=== PATIENT | female | born 1945 | race Caucasian/White ===

== ENCOUNTER 2018-08-03 11:08 | Inpatient (IN) | payer MEDICARE, MEDICAID ==
[2018-08-03 11:38] LABS: ADD MAN DIFF? NO
[2018-08-03] MEDS: SOD CHLORIDE 0.9% 500 ML IV (11:45)
[2018-08-03] MEDS: METHYLPREDNISOLONE 125 MG INJ IV (11:45)
[2018-08-03 11:51] LABS: BASOPHILS % 0.3 % (0.0-2.0); EOSINOPHILS % 0.4 % (0.0-7.0); HEMATOCRIT 43.4 % (37.0-47.0); HEMOGLOBIN 13.4 g/dl (12.0-16.0); LYMPHOCYTES # 3.5 10^3/ul (0.8-2.9); LYMPHOCYTES % 38.3 % (15.0-51.0); MEAN CORPUSCULAR HEMOGLOBIN 29.3 pg (29.0-33.0); MEAN CORPUSCULAR HGB CONC 30.9 g/dl (32.0-37.0); MEAN PLATELET VOLUME 10.9 fl (7.4-10.4); MONOCYTES % 10.3 % (0.0-11.0); NEUTROPHIL # 4.6 10^3/ul (1.6-7.5); NEUTROPHILS % 50.2 % (39.0-77.0); PLATELET COUNT 126 10^3/UL (140-415); RED BLOOD COUNT 4.57 10^6/ul (4.20-5.40)
[2018-08-03 11:51] LABS: WHITE BLOOD COUNT 9.2 10^3/ul (4.8-10.8)
[2018-08-03 12:07] LABS: ALANINE AMINOTRANSFERASE 72 IU/L (13-69); ALBUMIN 3.6 g/dl (3.3-4.9); ALBUMIN/GLOBULIN RATIO 0.92; ALKALINE PHOSPHATASE 87 IU/L (42-121); ANION GAP 11 (5-13); ASPARTATE AMINO TRANSFERASE 75 IU/L (15-46); BILIRUBIN,INDIRECT 0.1 mg/dl (0-1.1); BILIRUBIN,TOTAL 0.1 mg/dl (0.2-1.3); BLOOD UREA NITROGEN 30 mg/dl (7-20); CALCIUM 8.8 mg/dl (8.4-10.2); CARBON DIOXIDE 26 mmol/L (21-31); CHLORIDE 103 mmol/L (97-110); CREATININE 1.42 mg/dl (0.44-1.00); GLUCOSE 135 mg/dl (70-220); LIPASE 70 U/L (23-300); SODIUM 140 mmol/L (135-144); TOTAL PROTEIN 7.5 g/dl (6.1-8.1)
[2018-08-03] MEDS: ALBUTEROL 0.5% (NEB) 2.5 MG/0.5 ML AMP INH (12:09)
[2018-08-03 12:18] LABS: B-TYPE NATRIURETIC PEPTIDE 1100 PG/ML (0-125)
[2018-08-03 12:25] LABS: ADD UMIC NO; UR ASCORBIC ACID NEGATIVE (NEGATIVE); UR BILIRUBIN (Dip) NEGATIVE (NEGATIVE); UR BLOOD (Dip) NEGATIVE (NEGATIVE); UR CLARITY SLIGHTLY CLOUDY (CLEAR); UR COLOR YELLOW (YELLOW); UR GLUCOSE (Dip) NEGATIVE (NEGATIVE); UR KETONES (Dip) TRACE mg/dL (NEGATIVE); UR LEUKOCYTE ESTERASE (Dip) NEGATIVE Leu/ul (NEGATIVE); UR MUCUS FEW /HPF (NONE SEEN); UR NITRITE (Dip) NEGATIVE (NEGATIVE); UR RBC 1 /HPF (0-5); UR SPECIFIC GRAVITY (Dip) 1.016 (1.003-1.030); UR TOTAL PROTEIN (Dip) NEGATIVE (NEGATIVE); UR UROBILINOGEN (Dip) NEGATIVE (NEGATIVE); UR WBC 2 /HPF (0-5)
[2018-08-03 12:31] LABS: AADO2 Arterial 37.1 mmHg (7.0-24.0); Allen Test ACCEPTAB; Arterial Base Excess -0.3 mmol/L (-3.0-3); Arterial Blood Gas Oxygen Sat 87.4 mmHG (95.0-100.0); Arterial Fraction of Oxyhgb 86.3 % (93.0-99.0); Arterial HCO3 25.8 mmol/L (22.0-26.0); Arterial MetHb 0.3 % (0.0-1.5); Arterial pCO2 47.9 mmhg (35-45); MODE ROOM AIR; Site Right Radial
[2018-08-03] MEDS: OSELTAMIVIR 75 MG CAP PO ×2 (12:57→21:25)
[2018-08-03] MEDS: DEXTROSE 50% 50 ML SYRINGE IV (13:25)
[2018-08-03] MEDS: INSULIN REGULAR, HUMAN 100 UNIT/1 ML 3ML VIAL IVP (13:26)
[2018-08-03] MEDS ORDERED: DEXTROSE 50% 50 ML SYRINGE IV (13:30)
[2018-08-03] MEDS: OLANZAPINE 10 MG VIAL IM (14:59)
[2018-08-03] MEDS ORDERED: ALBUTEROL/IPRATROPIUM (NEB) 3 ML AMP HHN (18:00)
[2018-08-03] MEDS: CLONIDINE 0.2 MG/24 HR PATCH TRANSDERM (18:40)
[2018-08-03] MEDS ORDERED: PENDING SANTYL ORDER FOR WOUND CARE XX (19:00)
[2018-08-03] MEDS: ALBUTEROL/IPRATROPIUM (NEB) 3 ML AMP HHN (20:20)
[2018-08-03] MEDS: DIVALPROEX (EC) 500 MG TAB PO (21:25)
[2018-08-03] MEDS: QUETIAPINE 100 MG TAB PO (21:25)
[2018-08-03] MEDS: LORAZEPAM 1 MG TAB PO (21:25)
[2018-08-03] MEDS: SENNA TAB PO (21:25)
[2018-08-04] MEDS: ALBUTEROL/IPRATROPIUM (NEB) 3 ML AMP HHN ×3 (08:00→20:00)
[2018-08-04] MEDS: SENNA TAB PO ×2 (09:00→21:04)
[2018-08-04] MEDS: DIVALPROEX (EC) 500 MG TAB PO ×3 (09:00→21:04)
[2018-08-04] MEDS: PANTOPRAZOLE (EC) 40 MG TAB PO (09:00)
[2018-08-04] MEDS: ESCITALOPRAM 10 MG TAB PO (09:00)
[2018-08-04] MEDS: QUETIAPINE 100 MG TAB PO ×2 (09:00→21:04)
[2018-08-04] MEDS: AMLODIPINE 10 MG TAB PO (09:00)
[2018-08-04] MEDS: BENAZEPRIL 20 MG TAB PO (09:00)
[2018-08-04] MEDS: DOCUSATE SODIUM 100 MG CAP PO (09:00)
[2018-08-04] MEDS: OSELTAMIVIR 75 MG CAP PO (09:00)
[2018-08-04] MEDS: ASPIRIN (EC) 81 MG TAB PO (09:00)
[2018-08-04] MEDS: LORAZEPAM 1 MG TAB PO (11:38)
[2018-08-04 11:53] LABS: ADD MAN DIFF? NO
[2018-08-04 11:55] LABS: BASOPHILS % 0.1 % (0.0-2.0); HEMATOCRIT 44.3 % (37.0-47.0); HEMOGLOBIN 13.9 g/dl (12.0-16.0); LYMPHOCYTES # 1.6 10^3/ul (0.8-2.9); LYMPHOCYTES % 18.3 % (15.0-51.0); MEAN CORPUSCULAR HEMOGLOBIN 29.8 pg (29.0-33.0); MEAN CORPUSCULAR HGB CONC 31.4 g/dl (32.0-37.0); MEAN CORPUSCULAR VOLUME 94.9 fl (82.0-101.0); MEAN PLATELET VOLUME 10.6 fl (7.4-10.4); MONOCYTE # 0.7 10^3/ul (0.3-0.9); MONOCYTES % 7.4 % (0.0-11.0); NEUTROPHIL # 6.6 10^3/ul (1.6-7.5); NEUTROPHILS % 73.9 % (39.0-77.0); PLATELET COUNT 145 10^3/UL (140-415); RED BLOOD COUNT 4.67 10^6/ul (4.20-5.40); RED CELL DISTRIBUTION WIDTH 16.4 % (11.5-14.5)
[2018-08-04 11:55] LABS: WHITE BLOOD COUNT 8.9 10^3/ul (4.8-10.8)
[2018-08-04 12:12] LABS: ANION GAP 15 (5-13); BLOOD UREA NITROGEN 54 mg/dl (7-20); CALCIUM 8.8 mg/dl (8.4-10.2); CARBON DIOXIDE 22 mmol/L (21-31); CHLORIDE 105 mmol/L (97-110); CREATININE 1.66 mg/dl (0.44-1.00); GLUCOSE 158 mg/dl (70-220); POTASSIUM 4.8 mmol/L (3.5-5.1); SODIUM 142 mmol/L (135-144)
[2018-08-04] MEDS: COLLAGENASE 5 GM (UD JAR) TOP (16:50)
[2018-08-04] MEDS: HALOPERIDOL 5 MG INJ IV (17:32)
[2018-08-04] MEDS: OSELTAMIVIR 30 MG CAP PO (21:05)
[2018-08-05] MEDS: ALBUTEROL/IPRATROPIUM (NEB) 3 ML AMP HHN ×3 (08:15→20:45)
[2018-08-05] MEDS: ASPIRIN (EC) 81 MG TAB PO (08:16)
[2018-08-05] MEDS: DIVALPROEX (EC) 500 MG TAB PO ×3 (08:16→21:38)
[2018-08-05] MEDS: DOCUSATE SODIUM 100 MG CAP PO (08:16)
[2018-08-05] MEDS: AMLODIPINE 10 MG TAB PO (08:17)
[2018-08-05] MEDS: BENAZEPRIL 20 MG TAB PO (08:17)
[2018-08-05] MEDS: PANTOPRAZOLE (EC) 40 MG TAB PO (08:17)
[2018-08-05] MEDS: ESCITALOPRAM 10 MG TAB PO (08:17)
[2018-08-05] MEDS: QUETIAPINE 100 MG TAB PO ×2 (08:18→21:38)
[2018-08-05] MEDS: OSELTAMIVIR 30 MG CAP PO ×2 (08:18→21:40)
[2018-08-05] MEDS: COLLAGENASE 5 GM (UD JAR) TOP (08:18)
[2018-08-05] MEDS: SENNA TAB PO ×2 (08:18→21:39)
[2018-08-05 08:50] LABS: ADD MAN DIFF? NO
[2018-08-05 08:55] LABS: BASOPHILS % 0.2 % (0.0-2.0); EOSINOPHILS % 0.2 % (0.0-7.0); HEMATOCRIT 38.7 % (37.0-47.0); HEMOGLOBIN 12.3 g/dl (12.0-16.0); LYMPHOCYTES # 3.4 10^3/ul (0.8-2.9); LYMPHOCYTES % 38.8 % (15.0-51.0); MEAN CORPUSCULAR HGB CONC 31.8 g/dl (32.0-37.0); MEAN CORPUSCULAR VOLUME 94.4 fl (82.0-101.0); MEAN PLATELET VOLUME 11.3 fl (7.4-10.4); MONOCYTES % 11.5 % (0.0-11.0); NEUTROPHIL # 4.3 10^3/ul (1.6-7.5); PLATELET COUNT 138 10^3/UL (140-415); RED CELL DISTRIBUTION WIDTH 16.7 % (11.5-14.5)
[2018-08-05 08:55] LABS: WHITE BLOOD COUNT 8.7 10^3/ul (4.8-10.8)
[2018-08-05 09:22] LABS: ANION GAP 8 (5-13); BLOOD UREA NITROGEN 56 mg/dl (7-20); CALCIUM 8.6 mg/dl (8.4-10.2); CARBON DIOXIDE 28 mmol/L (21-31); CHLORIDE 109 mmol/L (97-110); CREATININE 1.35 mg/dl (0.44-1.00); GLUCOSE 85 mg/dl (70-220); POTASSIUM 4.7 mmol/L (3.5-5.1); SODIUM 145 mmol/L (135-144)
[2018-08-05 09:23] LABS: B-TYPE NATRIURETIC PEPTIDE 262 PG/ML (0-125)
[2018-08-05] MEDS: HALOPERIDOL 5 MG INJ IM (10:36)
[2018-08-05] MEDS: OLANZAPINE (ODT) 5 MG TAB ODT ×2 (11:19→21:38)
[2018-08-05] MEDS: OLANZAPINE 10 MG VIAL IM (14:23)
[2018-08-06] MEDS: ALBUTEROL/IPRATROPIUM (NEB) 3 ML AMP HHN ×3 (08:05→21:55)
[2018-08-06] MEDS: DIVALPROEX (EC) 500 MG TAB PO ×4 (08:33→21:00)
[2018-08-06] MEDS: COLLAGENASE 5 GM (UD JAR) TOP ×2 (08:33→08:55)
[2018-08-06] MEDS: AMLODIPINE 10 MG TAB PO ×2 (08:34→08:54)
[2018-08-06] MEDS: OSELTAMIVIR 30 MG CAP PO ×4 (08:34→21:00)
[2018-08-06] MEDS: ESCITALOPRAM 10 MG TAB PO ×2 (08:34→08:53)
[2018-08-06] MEDS: QUETIAPINE 100 MG TAB PO ×2 (08:34→08:54)
[2018-08-06] MEDS: SENNA TAB PO ×3 (08:35→21:00)
[2018-08-06] MEDS: DOCUSATE SODIUM 100 MG CAP PO ×2 (08:35→08:53)
[2018-08-06] MEDS: BENAZEPRIL 20 MG TAB PO ×2 (08:35→08:53)
[2018-08-06] MEDS: OLANZAPINE (ODT) 5 MG TAB ODT ×3 (08:35→21:00)
[2018-08-06] MEDS: PANTOPRAZOLE (EC) 40 MG TAB PO ×2 (08:35→08:54)
[2018-08-06] MEDS: ASPIRIN (EC) 81 MG TAB PO ×2 (08:35→08:53)
[2018-08-06] MEDS: LORAZEPAM 2 MG INJ IM (09:58)
[2018-08-06] MEDS: OLANZAPINE 10 MG VIAL IM (09:58)
[2018-08-06] MEDS ORDERED: DIPHENHYDRAMINE 50 MG INJ IM (13:00)
[2018-08-06] MEDS ORDERED: CHLORPROMAZINE 25 MG INJ IM (13:00)
[2018-08-06] MEDS ORDERED: OSELTAMIVIR 30 MG CAP PO (13:28)
[2018-08-06] MEDS ORDERED: CHLORPROMAZINE 50 MG INJ IM (20:00)
[2018-08-07] MEDS: COLLAGENASE 5 GM (UD JAR) TOP (08:35)
[2018-08-07] MEDS: OLANZAPINE (ODT) 5 MG TAB ODT ×2 (08:36→20:15)
[2018-08-07] MEDS: SENNA TAB PO ×2 (08:36→20:15)
[2018-08-07] MEDS: ESCITALOPRAM 10 MG TAB PO (08:36)
[2018-08-07] MEDS: BENAZEPRIL 20 MG TAB PO (08:36)
[2018-08-07] MEDS: AMLODIPINE 10 MG TAB PO (08:37)
[2018-08-07] MEDS: DOCUSATE SODIUM 100 MG CAP PO (08:37)
[2018-08-07] MEDS: PANTOPRAZOLE (EC) 40 MG TAB PO (08:37)
[2018-08-07] MEDS: ASPIRIN (EC) 81 MG TAB PO (08:37)
[2018-08-07] MEDS: DIVALPROEX (EC) 500 MG TAB PO ×3 (08:38→20:15)
[2018-08-07 08:40] LABS: ADD MAN DIFF? NO
[2018-08-07 08:42] LABS: BASOPHIL # 0.1 10^3/ul (0.0-0.1); BASOPHILS % 0.6 % (0.0-2.0); EOSINOPHILS # 0.4 10^3/ul (0.0-0.5); EOSINOPHILS % 4.5 % (0.0-7.0); HEMATOCRIT 43.9 % (37.0-47.0); HEMOGLOBIN 13.7 g/dl (12.0-16.0); LYMPHOCYTES # 2.9 10^3/ul (0.8-2.9); LYMPHOCYTES % 36.4 % (15.0-51.0); MEAN CORPUSCULAR HEMOGLOBIN 29.7 pg (29.0-33.0); MEAN CORPUSCULAR HGB CONC 31.2 g/dl (32.0-37.0); MEAN PLATELET VOLUME 10.5 fl (7.4-10.4); MONOCYTE # 0.7 10^3/ul (0.3-0.9); MONOCYTES % 9.1 % (0.0-11.0); NEUTROPHIL # 3.8 10^3/ul (1.6-7.5); NEUTROPHILS % 48.4 % (39.0-77.0); PLATELET COUNT 159 10^3/UL (140-415); RED BLOOD COUNT 4.62 10^6/ul (4.20-5.40); RED CELL DISTRIBUTION WIDTH 16.8 % (11.5-14.5)
[2018-08-07 08:42] LABS: WHITE BLOOD COUNT 7.9 10^3/ul (4.8-10.8)
[2018-08-07] MEDS: OSELTAMIVIR 30 MG CAP PO ×2 (08:42→20:15)
[2018-08-07 08:59] LABS: ANION GAP 8 (5-13)
[2018-08-07 09:11] LABS: B-TYPE NATRIURETIC PEPTIDE 1380 PG/ML (0-125)
[2018-08-07 09:15] LABS: BLOOD UREA NITROGEN 27 mg/dl (7-20); CALCIUM 9.1 mg/dl (8.4-10.2); CARBON DIOXIDE 34 mmol/L (21-31); CHLORIDE 105 mmol/L (97-110); CREATININE 0.98 mg/dl (0.44-1.00); GLUCOSE 119 mg/dl (70-220); SODIUM 147 mmol/L (135-144)
[2018-08-07] MEDS: ALBUTEROL/IPRATROPIUM (NEB) 3 ML AMP HHN ×3 (09:39→19:53)
[2018-08-07] MEDS: HALOPERIDOL 5 MG INJ IM (11:51)
[2018-08-07] MEDS ORDERED: FUROSEMIDE 40 MG INJ IV (15:30)
[2018-08-07] MEDS: FUROSEMIDE 40 MG TAB PO (15:48)
[2018-08-07] MEDS ORDERED: CEPASTAT LOZENGE MT (19:30)
[2018-08-08] MEDS: ALBUTEROL/IPRATROPIUM (NEB) 3 ML AMP HHN ×2 (08:00→14:00)
[2018-08-08] MEDS: ASPIRIN (EC) 81 MG TAB PO (08:12)
[2018-08-08] MEDS: COLLAGENASE 5 GM (UD JAR) TOP (08:12)
[2018-08-08] MEDS: OLANZAPINE (ODT) 5 MG TAB ODT (08:12)
[2018-08-08] MEDS: SENNA TAB PO (08:12)
[2018-08-08] MEDS: DOCUSATE SODIUM 100 MG CAP PO ×2 (08:13→13:13)
[2018-08-08] MEDS: PANTOPRAZOLE (EC) 40 MG TAB PO (08:13)
[2018-08-08] MEDS: AMLODIPINE 10 MG TAB PO (08:13)
[2018-08-08] MEDS: FUROSEMIDE 40 MG TAB PO (08:13)
[2018-08-08] MEDS: DIVALPROEX (EC) 500 MG TAB PO ×2 (08:13→13:10)
[2018-08-08] MEDS: ESCITALOPRAM 10 MG TAB PO (08:13)
[2018-08-08] MEDS: BENAZEPRIL 20 MG TAB PO (08:13)
[2018-08-08] MEDS: OSELTAMIVIR 30 MG CAP PO (09:20)
== END 2018-08-08 17:36 | DRG 190 ==
LOC: E/R 11:08 → 6WM 12:53 → 5EC 08-04 23:20
PROVIDERS: Family Medicine
DX: J44.1 Chronic obstructive pulmonary disease with (acute) exacerbation (principal); J10.00 Influenza due to other identified influenza virus with unspecified type of pneumonia; N17.9 Acute kidney failure, unspecified; F23 Brief psychotic disorder; Z68.43 Body mass index [BMI] 50.0-59.9, adult; E87.5 Hyperkalemia; E86.0 Dehydration; F25.0 Schizoaffective disorder, bipolar type; R53.1 Weakness; F41.9 Anxiety disorder, unspecified; E03.9 Hypothyroidism, unspecified; R06.03 Acute respiratory distress; I10 Essential (primary) hypertension; E66.01 Morbid (severe) obesity due to excess calories; M19.90 Unspecified osteoarthritis, unspecified site
CPT/HCPCS: 36415; 36600; 71045; 80048; 80053; 81001; 81003; 82803; 82962; 83605; 83690; 83880; 84484; 85025; 87040; 87081; 87086; 87400; 93005; 94640; 94644; 94664; 96374; 99291-25